=== PATIENT | female | born 1985 | race Caucasian/White ===

== ENCOUNTER 2017-02-07 10:44 | Emergency (ER) | payer OTHER ==
[~2017-02-07] VITALS: Ht 162.6 cm; Wt 79.8 kg
[2017-02-07 10:47] VITALS: BP 111/75
== END 2017-02-07 12:12 | disposition home or self-care (01) ==
LOC: ED 10:44
DX: R21 Rash and other nonspecific skin eruption (principal)
CPT/HCPCS: J7512

== ENCOUNTER 2018-07-08 22:55 | Emergency (ER) | payer OTHER ==
[~2018-07-08] VITALS: Ht 215.9 cm; Wt 83.0 kg
[2018-07-08 23:02] VITALS: Ht 215.9 cm; Wt 83.0 kg
[2018-07-09 00:47] VITALS: BP 117/46
== END 2018-07-09 00:47 | disposition home or self-care (01) ==
LOC: ED 22:55
DX: G50.0 Trigeminal neuralgia (principal); Z98.82 Breast implant status; Z90.49 Acquired absence of other specified parts of digestive tract

== ENCOUNTER 2019-02-15 17:50 | Emergency (ER) | payer OTHER ==
[~2019-02-15] VITALS: Ht 162.6 cm; Wt 81.6 kg
[2019-02-15 17:56] VITALS: Ht 162.6 cm; Wt 81.6 kg
[2019-02-15 20:09] VITALS: BP 114/73
== END 2019-02-15 20:09 | disposition home or self-care (01) ==
LOC: ED 17:50
DX: B02.9 Zoster without complications (principal)

== ENCOUNTER 2019-03-17 12:10 | Emergency (ER) | payer OTHER ==
[~2019-03-17] VITALS: Ht 162.6 cm; Wt 81.6 kg
[2019-03-17 12:26] VITALS: Ht 162.6 cm; Wt 81.6 kg
[2019-03-17 13:25] VITALS: BP 105/69
== END 2019-03-17 13:25 | disposition home or self-care (01) ==
LOC: ED 12:10
DX: S93.401A Sprain of unspecified ligament of right ankle, initial encounter (principal); Z90.49 Acquired absence of other specified parts of digestive tract; Z98.890 Other specified postprocedural states; W01.0XXA Fall on same level from slipping, tripping and stumbling without subsequent striking against object, initial encounter; Y93.89 Activity, other specified; Y92.89 Other specified places as the place of occurrence of the external cause; Y99.8 Other external cause status
CPT/HCPCS: Q0092

== ENCOUNTER 2020-01-24 13:44 | Emergency (ER) | payer OTHER ==
[~2020-01-24] VITALS: Ht 162.6 cm; Wt 82.1 kg
[2020-01-24 13:54] VITALS: Ht 162.6 cm; Wt 82.1 kg
[2020-01-24 14:50] LABS: PLATELET COUNT 165 x10^3mcL (130-400); RED CELL DISTRIBUTION WIDTH 13.1 % (11.5-14.5)
[2020-01-24 14:52] LABS: BASOPHIL % 19.4 % (0-2)
[2020-01-24 14:59] LABS: CALCIUM 8.6 mg/dL (8.5-10.1); CARBON DIOXIDE 27.3 mmol/L (21-32); CHLORIDE SERUM 103 mmol/L (98-107); CREATININE SERUM 0.8 mg/dL (0.6-1.0); GFR1 > 60 mL/min; GLUCOSE SERUM 101 mg/dL (74-106); POTASSIUM SERUM 3.1 mmol/L (3.5-5.1); SODIUM SERUM 140 mmol/L (136-145)
[2020-01-24 15:02] LABS: ALBUMIN 3.5 g/dL (3.4-5.0); ALKALINE PHOSPHATASE 55 U/L (46-116); ALT/SGPT 18 U/L (14-59); AMYLASE 53 U/L (25-115); AST/SGOT 11 U/L (15-37); BILIRUBIN TOTAL 0.2 mg/dL (0.20-1.00); LIPASE 136 IU/L (73-393)
[2020-01-24 15:11] LABS: UA SPECIFIC GRAVITY <=1.005 (1.005-1.035); microscopic required? YES; urine erythrocyte 1+ (NEGATIVE)
[2020-01-24 17:43] VITALS: BP 111/55
== END 2020-01-24 17:43 | disposition home or self-care (01) ==
LOC: ED 13:44
PROVIDERS: Specialist
DX: N83.201 Unspecified ovarian cyst, right side (principal); N39.0 Urinary tract infection, site not specified; Z41.1 Encounter for cosmetic surgery
CPT/HCPCS: J1885; J2405; J3010; J7030; Q0092

== ENCOUNTER 2020-04-13 13:21 | Emergency (ER) | payer OTHER, SELFPAY ==
[~2020-04-13] VITALS: Ht 165.1 cm; Wt 79.4 kg
[2020-04-13 13:22] VITALS: Ht 165.1 cm; Wt 79.4 kg
[2020-04-13 15:24] VITALS: BP 111/62
== END 2020-04-13 15:24 | disposition home or self-care (01) ==
LOC: ED 13:21
DX: R07.89 Other chest pain (principal); F17.210 Nicotine dependence, cigarettes, uncomplicated; Z41.1 Encounter for cosmetic surgery
CPT/HCPCS: 99406; Q0092